=== PATIENT | female | born 1950 | race Caucasian/White ===

== ENCOUNTER 2016-11-25 08:55 | Day surgery (SDC) | payer MEDICARE, OTHER ==
[2016-11-25] VITALS (10 sets, daily range): BP systolic 138–165; BP diastolic 65–83; PULSE 56–74; RESP 16–17; TEMP 97.8–99; O2SAT 97–99
[~2016-11-25] VITALS: Ht 157.5 cm; Wt 77.0 kg
[2016-11-25] MEDS ORDERED: ATOR1TAB18 PO (09:35)
[2016-11-25] MEDS ORDERED: ATEN50TA7 PO (09:35)
[2016-11-25] MEDS ORDERED: ASPI81TA11 PO (09:35)
[2016-11-25] MEDS ORDERED: VITA1000 PO (09:35)
[2016-11-25] MEDS ORDERED: ASPIRIN 81 MG CHEW TAB ONE (09:52)
[2016-11-25] MEDS: NS 1000 ML @100 MLS/HR IV SCH ×2 (09:57→12:23)
[2016-11-25 09:59] LABS: AUTOMATED NEUTROPHIL # 3.4 TH/MM3 (1.8-7.7); BASOPHIL % 0.5 % (0.0-2.0); EOSINOPHIL # 0.1 TH/MM3 (0-0.4); EOSINOPHIL % 1.3 % (0.0-4.0); HEMO FLAGS DIFF FINAL; LYMPH % 38.5 % (9.0-44.0); LYMPHOCYTE # 2.6 TH/MM3 (1.0-4.8); MEAN CELL VOLUME 86.7 FL (80.0-100.0); MEAN CORPUSCULAR HGB CONC 35.8 % (32.0-36.0); MONO % 9.2 % (0.0-8.0); NEUT % 50.5 % (16.0-70.0); PLATELET COUNT 222 TH/MM3 (150-450); RED BLOOD COUNT 4.73 MIL/MM3 (4.00-5.30); RED CELL DISTRIBUTION WIDTH 12.7 % (11.6-17.2); WHITE BLOOD COUNT 6.7 TH/MM3 (4.0-11.0)
[2016-11-25] MEDS ORDERED: ASPIRIN 325 MG TAB PO SCH (10:00)
[2016-11-25] MEDS ORDERED: diphenhydrAMINE HCL 50 MG CAP PO SCH (10:00)
[2016-11-25 10:05] LABS: APTT (PATIENT) 29.1 SEC (24.3-30.1); PROTHROMBIN TIME - PATIENT 10.9 SEC (9.8-11.6)
[2016-11-25 10:11] LABS: BICARBONATE 30.5 MEQ/L (21.0-32.0); POTASSIUM 3.7 MEQ/L (3.5-5.1)
[2016-11-25] MEDS ORDERED: IOHEXOL 350 MG/ML 100 ML BTL (for Cath Lab) OTHER ONE (10:35)
[2016-11-25] MEDS ORDERED: HEPARIN-NS/PF INJ 1,000 ML ONE (10:40)
[2016-11-25] MEDS ORDERED: MIDAZOLAM HCL 2 MG/2 ML VIAL ONE (10:51)
[2016-11-25] MEDS ORDERED: NITROGLYCERIN INJ 5 ML ONE (11:38)
[2016-11-25] MEDS ORDERED: BIVALIRUDIN 250 MG VIAL ONE (12:14)
[2016-11-25] MEDS ORDERED: STERILE WATER FOR INJECTION 10 ML VIAL ONE (12:15)
[2016-11-25] MEDS ORDERED: PRASUGREL 10 MG TAB ONE (12:16)
[2016-11-25] MEDS ORDERED: NITROGLYCERIN 0.4 MG SL 25 TABS/BTL SL PRN (15:00)
[2016-11-25] MEDS ORDERED: SODIUM CHLOR 0.9% 1000 ML INJ 1,000 ML IV SCH (15:00)
[2016-11-25] MEDS ORDERED: SODIUM CHLORIDE FLUSH PRN IV FLUSH (15:00)
--- NOTE | 2016-11-25 15:12 | MA ---
cc: JACQUES CAGLE M.D.TRACIE DATE: 11/25/2016 PROCEDURE 1. Left heart catheterization. 2. Coronary arteriogram. 3. Percutaneous transluminal balloon angioplasty followed by stenting of a mid 90% RCA disease reducing it to 0% angiographically using a 2.5 x 8 mm drug-eluting Resolute stent. 4. Left ventriculogram. 5. Right femoral arteriogram. 6. Right femoral arteriotomy site closure using a StarClose device. 7. Moderate sedation using Versed and fentanyl for 90 minutes. DIVING [employer]SEM[employer]ER Bib Cagle MD INDICATION Chest discomfort/sensations, abnormal nuclear stress study for lateral and inferior wall ischemia, moderate ischemia and persistent symptoms. EQUIPMENT USED 6-Slovenian short sheath. 0.035 J guidewire. 6-Slovenian JL4, JR4 and pigtail diagnostic catheters. 6-Slovenian FR 4.0 guide exchanged to a 6-Slovenian WHITNEY guide with side holes to cannulate the right coronary artery for intervention. 0.014 ATW long marker wire. 2.0 x 8 mm compliant balloon. 2.5 x 8 mm drug-eluting Resolute stent. 2.5 x 6 mm noncompliant balloon, Euphora NC from [employer]. DETAILS OF PROCEDURE After obtaining informed consent the right groin was prepped in the usual sterile fashion. 50 cc of 1% lidocaine were used for local anesthesia. Using the modified Seldinger technique the right femoral artery was cannulated and a 6-Slovenian short sheath was inserted in the femoral artery. Using the above-mentioned diagnostic catheters selective coronary angiograms were performed. This was followed by left ventriculogram performed in the HAHN view at 30 degree angle after percutaneous revascularization of the RCA of which a separate description will follow. At the end of the case the right femoral system was injected revealing no significant disease. A StarClose device was applied achieving adequate hemostasis. The patient tolerated the procedure well without acute complication at the time of dictation. CARDIAC CATHETERIZATION FINDINGS HEMODYNAMICS Aortic pressure was 140/60 mmHg. Mean aortic pressure was 86 mmHg. There was no gradient across the aortic valve. Left ventricular end-diastolic pressure was 18 mmHg. CORONARIES The left main artery arose from the left sinus of Valsalva. This had distal 10-20% tapering. The left circumflex had 20% ostial disease and mid 30% disease. It was a big dominant vessel. A good size OM branch originated from the mid to distal third of the circumflex and this had an 85-90% ostial disease on a bend from the circumflex and as soon as it originated it bifurcated to upper and lower branches. The lower branch had 30-40% proximal disease. The circumflex in the mid to distal portion had mild diffuse regularities of less than 20%. Distally the circumflex gave a PLV branch that had a proximal 60-70% stenosis and a mid 40% concentric stenosis. The left anterior descending artery branched from the left main artery and this had an ostial proximal 20% followed by another 10% followed by a mid 10-30% diffuse plaque. The LAD distally at the apex had another 50-60% in a small caliber area. A big septal trunk acted like a dual LAD medial system and had mild diffuse regularities of less than 30%. The right coronary arose from the right sinus of Valsalva. This was a nondominant vessel, however, it led to a big RV branch and there was an 85-90% fibrotic lesion concentric in the midportion followed by diffuse 40-50% disease before it bifurcated to the RCA and the big RV branch. That gave a high cornus branch with mild irregularities of less than 10%. The RV branch in the distal RCA had mild diffuse irregularities of less than 20%. LEFT VENTRICULOGRAM The left ventriculogram revealed normal wall motion, normal systolic function. Ejection fraction visual estimates was around 65-70%. CONCLUSIONS OF THE CARDIAC CATHETERIZATION 1. Significant ostial mid OM from the mid circumflex on two bands will be treated medically unless symptomatic then rotational atherectomy and cutting balloon angioplasty would be entertained. The distance of the lesion is pretty short and it involves the circumflex and involves the bifurcation of that OM and on a 90-degree angle as well. There will be no short stent enough to stent this area adequately without protruding in either way in larger areas than the stent itself and without compromising branches and the main circumflex. The best approach to this is likely rotational atherectomy versus cutting balloon angioplasty and hopefully achieving good results, if needed and if she remains symptomatic. 2. Mild disease of the LAD system. 3. Moderate to borderline significant distal PLV branch of the circumflex will be treated medically. 4. Tight mid RCA disease which was stented in this procedure. 5. Circumflex dominant vessel. 6. Normal left ventricular systolic function. 7. Elevated left ventricular end-diastolic pressure. We decided to proceed with revascularization of the RCA because of the inferior wall ischemia and because the lesion leads to a good size RV branch/acute marginal branch. REVASCULARIZATION OF THE RCA Initially a FR 4.0 guide was advanced cannulating the RCA. Then a 0.014 ATW long marker wire was advanced after exchanging the guide to an WHITNEY guide to seat better at the ostium of the RCA because it had an anterior/superior takeoff. The ATW was advanced in the RV branch and then initially a 2.0 x 8 mm (we did not have a shorter balloon that size) was advanced and inflated once to reduce the stenosis from 90% to 50-60%. After which this was stented using a 2.5 x 8 mm drug-eluting Resolute stent covering the tight lesion and was post dilated with a 2.5 x 6 mm noncompliant balloon, reducing the stenosis to 0% angiographically, and we decided to accept these results. Angiomax and loading with Effient was used for anticoagulation/antiplatelet regimen in this procedure. The patient tolerated the procedure well without acute complication. At the time of dictation she is being transferred to the post-procedure unit in stable condition. MD TONY Coon/KULDIP /1:36 PM /2:34 PM
--- NOTE | 2016-11-25 16:47 | EKG ---
Date Performed: 11/25/2016 Time Performed: 10:04:04 PTAGE: 66 years EKG: Sinus bradycardia with 1st degree A-V block Abnormal ECG NO PREVIOUS TRACING DOCTOR: Nicci Zuniga Interpretating Date/Time 11/25/2016 16:41:41
[2016-11-25] MEDS: SODIUM CHLORIDE FLUSH BID IV FLUSH SCH (20:21)
[2016-11-25] MEDS: METOPROLOL TARTRATE 25 MG TAB PO SCH (20:21)
[2016-11-25] MEDS ORDERED: ATORVASTATIN 80 MG TAB PO SCH (21:00)
[2016-11-26] VITALS (8 sets, daily range): BP systolic 136–144; BP diastolic 64–76; PULSE 51–69; RESP 18–19; TEMP 97.8–98.2; O2SAT 95–99
[2016-11-26] MEDS ORDERED: HYDROCHLOROTHIAZIDE 12.5 MG CAP PO ONE (01:30)
[2016-11-26] MEDS ORDERED: PRAS10TA PO (07:29)
[2016-11-26] MEDS ORDERED: METO25TA3 PO (07:30)
[2016-11-26] MEDS ORDERED: HYDR12.57 PO (07:31)
[2016-11-26] MEDS ORDERED: ISOS30TA15 PO (07:35)
[2016-11-26] MEDS: METOPROLOL TARTRATE 25 MG TAB PO SCH (08:04)
[2016-11-26] MEDS: SODIUM CHLORIDE FLUSH BID IV FLUSH SCH (08:05)
[2016-11-26] MEDS ORDERED: HYDROCHLOROTHIAZIDE 12.5 MG CAP PO SCH (09:00)
[2016-11-26] MEDS ORDERED: PRASUGREL 10 MG TAB PO SCH (09:00)
[2016-11-26] MEDS ORDERED: ISOSORBIDE MONONITRATE 30 MG TAB PO SCH (09:00)
[2016-11-26] MEDS ORDERED: ASPIRIN 81 MG CHEW TAB PO SCH (09:00)
--- NOTE | 2016-11-26 17:58 | EKG ---
Date Performed: 11/25/2016 Time Performed: 15:20:16 PTAGE: 66 years EKG: Sinus bradycardia with 1st degree A-V block Abnormal ECG Compared to prior tracing no signi ficant change PREVIOUS TRACING : 11/25/2016 10.04 DOCTOR: Isidro Figueroa Interpretating Date/Time 11/26/2016 17:57:23
[2016-11-27] MEDS ORDERED: PROT40TA PO (01:09)
== END 2016-11-26 08:00 | disposition home or self-care (01) ==
LOC: HDOC 08:55 → HDIC 08:58 → HCIN 15:46 → HDOC 11-26 08:00
PROVIDERS: ATTEND Internal Medicine Interventional Cardiology
DX: I25.110 Atherosclerotic heart disease of native coronary artery with unstable angina pectoris (principal); I47.1 Supraventricular tachycardia; I10 Essential (primary) hypertension; E78.00 Pure hypercholesterolemia, unspecified; Z79.899 Other long term (current) drug therapy; Z79.01 Long term (current) use of anticoagulants; M54.6 Pain in thoracic spine; K29.00 Acute gastritis without bleeding; M54.5 Low back pain; R51 Headache; M54.2 Cervicalgia; R10.13 Epigastric pain; M25.519 Pain in unspecified shoulder; R73.03 Prediabetes
CPT/HCPCS: 70450; 71010; 71275; 74174; 80048; 82550; 83735; 84484; 85002; 85025; 85610; 85730; 92928; 93005; 93458; 96374; 96375; 99285; C1725; C1760; C1769; C1874; C1887; C1893; C9113; G0269; J0583; J1644; J2250; J2270; J2405; J3010; J7030; Q0163; Q9967

== ENCOUNTER 2016-11-26 21:23 | Emergency (ER) | payer MEDICARE, OTHER ==
[~2016-11-26] VITALS: Ht 157.5 cm; Wt 78.2 kg
[~2016-11-26 21:23] MED LIST: ASPI81TA11 PO; ATEN50TA7 PO; ATOR1TAB18 PO; HYDR12.57 PO; IOHEXOL 350 MG/ML 10 ML VIAL (for RAD DIAG) IVCONTRAST ONE; ISOS30TA15 PO; METO25TA3 PO; PRAS10TA PO; VITA1000 PO
[2016-11-26 21:24] VITALS: BP 173/78; PULSE 67; RESP 16; TEMP 98.4; O2SAT 98
--- NOTE | 2016-11-26 22:35 | PD ---
HPI Chief Complaint: back pain Time Seen by Provider: 22:35 Travel History International Travel<30 days: No Contact w/Intl Traveler<30days: No Traveled to known affect area: No History of Present Illness HPI 66-year-old female came to the emergency room with history of significant pain on the back of her head going down to the neck and her shoulders as well as mid to lower back pain coming to the front of her abdomen in the epigastric area. Patient was discharged home earlier this morning after having a stent put in yesterday. Patient says she was having some back pain which was mentioned that she was in the hospital. However since 4:30 PM the headache started and the back pain intensified. He her pain is 7 out of 10. She looks uncomfortable. Vital signs are stable otherwise. No history of fever or chills. No history of photophobia. No history of neck stiffness. PFSH Past Medical History Narrative Medical List of her past medical, surgical, social and family history is reviewed from the nursing note. Heart Rhythm Problems: No Cancer: No Cardiovascular Problems: Yes High Cholesterol: Yes Chest Pain: No Congestive Heart Failure: No Diabetes: Yes (pre) Endocrine: No Genitourinary: No Hypertension: Yes Musculoskeletal: No Neurologic: No Psychiatric: No Reproductive: No Respiratory: No Social History Tobacco Use: No Substance Use: No Allergies-Medications (Allergen,Severity, Reaction): Coded Allergies: Sulfa (Sulfonamide Antibiotics) (Verified Allergy, Unknown, 11/26/16) Comments List of her allergies reviewed from the nursing note. Reported Meds & Prescriptions Reported Meds & Active Scripts Active Protonix (Pantoprazole Sodium) 40 Mg Tab 40 Mg PO DAILY Reported Isosorbide Dinitrate 30 Mg Tab 30 Mg PO DAILY Hydrochlorothiazide 12.5 Mg Cap 12.5 Mg PO DAILY Metoprolol Tartrate 25 Mg Tab 25 Mg PO BID Effient (Prasugrel) 10 Mg Tab 10 Mg PO DAILY Vitamin D-1000 (Cholecalciferol) 1,000 Unit Tab 1,000 Units PO DAILY Atorvastatin (Atorvastatin Calcium) 80 Mg Tab 80 Mg PO HS Aspirin EC (Aspirin) 81 Mg Tabdr 81 Mg PO DAILY Narrative Medication List of her home medications reviewed from the nursing note. Review of Systems Except as stated in HPI: all other systems reviewed are Neg Physical Exam Narrative GENERAL: Awake, alert, moderate distress SKIN: Focused skin assessment warm/dry. HEAD: Atraumatic. Normocephalic. EYES: Pupils equal and round. No scleral icterus. No injection or drainage. ENT: No nasal bleeding or discharge. Mucous membranes pink and moist. NECK: Trachea midline. No JVD. Neck is supple, no meningismus CARDIOVASCULAR: Regular rate and rhythm. No murmur appreciated. RESPIRATORY: No accessory muscle use. Clear to auscultation. Breath sounds equal bilaterally. GASTROINTESTINAL: Abdomen soft, non-tender, nondistended. Hepatic and splenic margins not palpable. MUSCULOSKELETAL: No obvious deformities. No clubbing. No cyanosis. No edema. NEUROLOGICAL: Awake and alert. No obvious cranial nerve deficits. Motor grossly within normal limits. Normal speech. PSYCHIATRIC: Appropriate mood and affect; insight and judgment normal. Data Data Last Documented VS Vital Signs Date Time Temp Pulse Resp B/P (MAP) Pulse Ox O2 Delivery O2 Flow Rate FiO2 11/27/16 01:31 11/26/16 23:00 65 16 96 Room Air 11/26/16 21:24 98.4 Orders Orders Electrocardiogram (11/26/16 22:46) Basic Metabolic Panel (Bmp) (11/26/16 22:46) Ckmb (Isoenzyme) Profile (11/26/16 22:46) Complete Blood Count With Diff (11/26/16 22:46) Magnesium (Mg) (11/26/16 22:46) Prothrombin Time / Inr (Pt) (11/26/16 22:46) Act Partial Throm Time (Ptt) (11/26/16 22:46) Troponin I (11/26/16 22:46) Chest, Single Ap (11/26/16 22:46) Ecg Monitoring (11/26/16 22:46) Bilateral Bp Monitoring (11/26/16 22:46) Iv Access Insert/Monitor (11/26/16 22:46) Oximetry (11/26/16 22:46) Oxygen Administration (11/26/16 22:46) Sodium Chloride 0.9% Flush (Ns Flush) (11/26/16 23:00) Cta Thor Abd Aorta W Iv C W3d (11/26/16 22:46) Pantoprazole Inj (Protonix Inj) (11/26/16 23:00) Morphine Inj (Morphine Inj) (11/26/16 23:00) Ondansetron Inj (Zofran Inj) (11/26/16 23:00) Ct Brain W/O Iv Contrast(Rout) (11/26/16 ) Potassium Chloride (Kcl) (11/27/16 00:00) Iohexol 350 Inj (Omnipaque 350 Inj) (11/26/16 00:41) Labs Laboratory Tests Test 11/26/16 23:12 White Blood Count 10.8 TH/MM3 Red Blood Count 4.42 MIL/MM3 Hemoglobin 13.6 GM/DL Hematocrit 38.1 % Mean Corpuscular Volume 86.2 FL Mean Corpuscular Hemoglobin 30.7 PG Mean Corpuscular Hemoglobin Concent 35.6 % Red Cell Distribution Width 12.5 % Platelet Count 206 TH/MM3 Mean Platelet Volume 8.4 FL Neutrophils (%) (Auto) 73.6 % Lymphocytes (%) (Auto) 19.1 % Monocytes (%) (Auto) 6.7 % Eosinophils (%) (Auto) 0.3 % Basophils (%) (Auto) 0.3 % Neutrophils # (Auto) 7.9 TH/MM3 Lymphocytes # (Auto) 2.1 TH/MM3 Monocytes # (Auto) 0.7 TH/MM3 Eosinophils # (Auto) 0.0 TH/MM3 Basophils # (Auto) 0.0 TH/MM3 CBC Comment DIFF FINAL Differential Comment Prothrombin Time 11.2 SEC Prothromb Time International Ratio 1.0 RATIO Activated Partial Thromboplast Time 29.0 SEC Blood Urea Nitrogen 16 MG/DL Creatinine 0.77 MG/DL Random Glucose 105 MG/DL Calcium Level 9.6 MG/DL Magnesium Level 2.2 MG/DL Sodium Level 136 MEQ/L Potassium Level 3.3 MEQ/L Chloride Level 101 MEQ/L Carbon Dioxide Level 25.0 MEQ/L Anion Gap 10 MEQ/L Estimat Glomerular Filtration Rate 75 ML/MIN Total Creatine Kinase 90 U/L Troponin I 0.03 NG/ML [facility] Medical Decision Making Medical Screen Exam Complete: Yes Emergency Medical Condition: Yes Medical Record Reviewed: Yes Interpretation(s) Twelve-lead EKG was reviewed by me. Normal sinus rhythm, normal axis, nonspecific ST-T wave changes. Heart rate of 63 bpm. Differential Diagnosis Aortic dissection, gastritis, electrolyte abnormality, dehydration Narrative Course 12:31 AM blood test results are back. Potassium is slightly low and I have ordered for replacement. Waiting for the CT head and CT thoracic aortogram to be done and resulted. Patient was medicated for pain and nausea. She was given IV Protonix as well. Procedures EKG Prior to Arrival: No Diagnosis Primary Impression: Back pain Qualified Codes: M54.6 - Pain in thoracic spine Additional Impressions: Status post cardiac catheterization Gastritis Qualified Codes: K29.00 - Acute gastritis without bleeding Referrals: Primary Care Physician Additional Instructions: Please return to the ER if the condition worsens or any other new concerns. Otherwise follow-up with your primary care and the non destructive testing technician early next week. Take the medication as per the prescription direction. Try to avoid acidic food or drinks like the ones containing [place]/lemon/oranges/strawberries/ tomatoes etc. Med/Other Pt SpecificInfo: Prescription(s) given Scripts Pantoprazole (Protonix) 40 Mg Tab 40 MG PO DAILY for Reflux, #30 TAB 0 Refills Prov: Graham Castañeda MD 11/27/16 Disposition: 01 DISCHARGE HOME Condition: Stable Graham Castañeda MD Nov 26, 2016 22:35
[2016-11-26 22:51] VITALS: BP 155/72; PULSE 64; RESP 16; O2SAT 96
[2016-11-26 22:59] VITALS: BP 152/72; PULSE 68; RESP 16; O2SAT 97
[2016-11-26 23:00] VITALS: BP 150/74; PULSE 65; RESP 16; O2SAT 96
[2016-11-26] MEDS ORDERED: SODIUM CHLORIDE 0.9% FLUSH 10 ML FLUSH IVF PRN (23:00)
[2016-11-26] MEDS ORDERED: PANTOPRAZOLE SODIUM 40 MG VIAL IV PUSH ONE (23:00)
[2016-11-26] MEDS ORDERED: ONDANSETRON HCL 4 MG/2 ML VIAL IV PUSH ONE (23:00)
[2016-11-26] MEDS ORDERED: MORPHINE SULFATE 4 MG/ML INJ IV PUSH ONE (23:00)
--- NOTE | 2016-11-26 23:06 | RADRPT ---
EXAM DATE/TIME: 11/26/2016 22:46 [facility] COMPARISON: No previous studies available for comparison. INDICATIONS : Cadiac cath yesterday and having pain down back of head and neck of patient. MEDICAL HISTORY : None. SURGICAL HISTORY : Cardiac cath. ENCOUNTER: Initial ACUITY: 1 day PAIN SCORE: 6/10 LOCATION: Bilateral Chest FINDINGS: Portable AP view of the chest demonstrates a normal-sized cardiac silhouette. No effusion, consolidat ion, or pneumothorax is visualized. The bones and soft tissues demonstrate no acute abnormality. CONCLUSION: No acute cardiopulmonary abnormality is identified. Felipe Hdez MD on November 26, 2016 at 23:04 Board Certified Radiologist. This report was verified electronically.
[2016-11-26 23:39] LABS: AUTOMATED NEUTROPHIL # 7.9 TH/MM3 (1.8-7.7); BASOPHIL % 0.3 % (0.0-2.0); EOSINOPHIL % 0.3 % (0.0-4.0); HEMATOCRIT 38.1 % (35.0-46.0); HEMO FLAGS DIFF FINAL; LYMPH % 19.1 % (9.0-44.0); LYMPHOCYTE # 2.1 TH/MM3 (1.0-4.8); MEAN CELL VOLUME 86.2 FL (80.0-100.0); MEAN CORPUSCULAR HEMOGLOBIN 30.7 PG (27.0-34.0); MEAN CORPUSCULAR HGB CONC 35.6 % (32.0-36.0); MONO % 6.7 % (0.0-8.0); NEUT % 73.6 % (16.0-70.0); PLATELET COUNT 206 TH/MM3 (150-450); RED BLOOD COUNT 4.42 MIL/MM3 (4.00-5.30); RED CELL DISTRIBUTION WIDTH 12.5 % (11.6-17.2); WHITE BLOOD COUNT 10.8 TH/MM3 (4.0-11.0)
[2016-11-26 23:49] LABS: MAGNESIUM 2.2 MG/DL (1.5-2.5); POTASSIUM 3.3 MEQ/L (3.5-5.1)
[2016-11-26 23:55] LABS: PROTHROMBIN TIME - PATIENT 11.2 SEC (9.8-11.6)
[2016-11-27] MEDS ORDERED: POTASSIUM CHLORIDE 20 MEQ CONTROLLED RELEASE TAB PO ONE
--- NOTE | 2016-11-27 00:42 | RADRPT ---
EXAM DATE/TIME: 11/27/2016 00:31 [facility] COMPARISON: No previous studies available for comparison. INDICATIONS : Headaches. RADIATION DOSE: 48.35 CTDIvol (mGy) ; Tabletop CT Head MEDICAL HISTORY : Cardiovascular disease. Hypertension. Diabetes mellitus type 2. SURGICAL HISTORY : None. ENCOUNTER: Initial ACUITY: 1 day PAIN SCALE: 5/10 LOCATION: cranial TECHNIQUE: Multiple contiguous axial images were obtained of the head. Using automated exposure control and adj ustment of the mA and/or kV according to patient size, radiation dose was kept as low as reasonably a chievable to obtain optimal diagnostic quality images. DICOM format image data is available electro nically for review and comparison. FINDINGS: CEREBRUM: There is mild general atrophy. Ventricles are normal in size. No evidence of midline shift, mass les ion, hemorrhage or acute infarction. No extra-axial fluid collections are seen. POSTERIOR FOSSA: The cerebellum and brainstem demonstrate no acute finding. The 4th ventricle is midline. The cerebe llopontine angle is unremarkable. EXTRACRANIAL: Visualized sinuses are clear. SKULL: The calvaria is intact. No evidence of skull fracture. CONCLUSION: No acute intracranial abnormality is identified. Felipe Hdez MD on November 27, 2016 at 0:38 Board Certified Radiologist. This report was verified electronically.
--- NOTE | 2016-11-27 01:02 | RADRPT ---
EXAM DATE/TIME: 11/27/2016 00:34 [facility] COMPARISON: No previous studies available for comparison. INDICATIONS : Neck pain with chest pressure. IV CONTRAST: 100 cc Omnipaque 350 (iohexol) IV RADIATION DOSE: 16.91 CTDIvol (mGy) MEDICAL HISTORY : Cardiovascular disease. Hypertension. Diabetes mellitus type 2. SURGICAL HISTORY : None. ENCOUNTER: Initial ACUITY: 1 day PAIN SCALE: 5/10 LOCATION: chest TECHNIQUE: Volumetric scanning was performed using a multi-row detector CT scanner. The data was post processed with a variety of visualization algorithms including full volume maximum intensity projection, multi -planar sliding thin slab reformation, curved planar reformation, and surface rendering techniques. Using automated exposure control and adjustment of the mA and/or kV according to patient size, radiat ion dose was kept as low as reasonably achievable to obtain optimal diagnostic quality images. DICOM format image data is available electronically for review and comparison. FINDINGS: LUNGS: There is a 6 mm noncalcified pulmonary nodule in left lower lobe. There is dependent atelectasis. MEDIASTINUM: No lymphadenopathy is identified. Heart and great vessels demonstrate no acute finding. There is bassam nary artery calcification. ABDOMEN: A. liver, adrenal glands, kidneys, spleen, and pancreas demonstrate no acute abnormality. There is a 9 mm cyst in the right lobe of the liver. A small hiatal hernia is present. There are multiple surgic al clips on the anterior abdominal wall. PELVIS: Uterus is absent. Urinary bladder is within normal limits. THORACIC AORTA: There is moderate to severe atherosclerotic disease. No aneurysm or dissection is present. ABDOMINAL AORTA: There is severe atherosclerotic disease. Superior mesenteric artery, celiac trunk, and renal arteries demonstrate no significant abnormality. WHITNEY is patent. PELVIC VESSELS: Common iliac arteries demonstrate mild atherosclerotic disease. There is a short segment focal dissec tion of the proximal right external iliac artery. There is subcutaneous stranding/edema in the right inguinal region adjacent to the common femoral ves sels. CONCLUSION: 1. No abnormality is identified to explain the clinical symptoms. There is severe atherosclerotic dis ease. A short segment focal dissection is present within the right proximal external iliac artery. 2. Inflammatory changes in the right inguinal region adjacent to the common femoral vessels is likely related to the recent procedure. 3. There is a 6 mm left lower lobe noncalcified pulmonary nodule. Suggest correlating with any prior imaging studies to confirm longer-term stability. If none are available suggest one year followup non contrast chest CT. Felipe Hdez MD on November 27, 2016 at 0:53 Board Certified Radiologist. This report was verified electronically.
[2016-11-27] MEDS ORDERED: PROT40TA PO (01:09)
--- NOTE | 2016-11-28 00:52 | EKG ---
Date Performed: 11/26/2016 Time Performed: 21:48:07 PTAGE: 66 years EKG: Sinus rhythm NON-SPECIFIC ST/T WAVE CHANGES PREVIOUS TRACING : 11/25/2016 15.20 Compared to prior tracing no significant change DOCTOR: Lamont Barrientos Interpretating Date/Time 11/28/2016 00:50:54
== END 2016-11-27 01:33 | disposition home or self-care (01) ==
LOC: NEPD 21:23
DX: M54.6 Pain in thoracic spine (principal); K29.00 Acute gastritis without bleeding; M54.5 Low back pain; R51 Headache; M54.2 Cervicalgia; R10.13 Epigastric pain; M25.519 Pain in unspecified shoulder; I10 Essential (primary) hypertension; R73.03 Prediabetes; E78.00 Pure hypercholesterolemia, unspecified; Z98.890 Other specified postprocedural states; Z79.899 Other long term (current) drug therapy; Z86.79 Personal history of other diseases of the circulatory system
CPT/HCPCS: 70450; 71010; 71275; 74174; 80048; 82550; 83735; 84484; 85025; 85610; 85730; 93005; 96374; 96375; 99285; C9113; J2270; J2405; Q9967